=== PATIENT | male | born 1975 | race Caucasian/White ===

== ENCOUNTER 2016-12-24 21:53 | Emergency (ER) ==
[2016-12-24] MEDS ORDERED: LIDOCAINE 1 % AMP 5 ML (SUTURES) SUBCUT STA (21:58)
[2016-12-24] MEDS ORDERED: LIDOCAINE 1 % AMP 5 ML (SUTURES) ONE (21:58)
[2016-12-24 22:02] VITALS: BP 143/95; TEMP 98.2; BMI 27.5
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
--- NOTE | 2016-12-25 07:46 | DI ---
EXAM: Left finger third digit three-view HISTORY: Trauma COMPARISON: None FINDINGS: The bones are normal. The joints are normal. No focal soft tissue abnormality. IMPERSSION: Normal examination.
== END 2016-12-24 22:39 | disposition home or self-care (01) ==
LOC: ED 21:53
DX: S61.213A Laceration without foreign body of left middle finger without damage to nail, initial encounter (principal); V86.99XA Unspecified occupant of other special all-terrain or other off-road motor vehicle injured in nontraffic accident, initial encounter; F17.210 Nicotine dependence, cigarettes, uncomplicated
CPT/HCPCS: 96372; 99283